=== PATIENT | male | born 1990 | race Caucasian/White ===

== ENCOUNTER 2022-10-29 03:40 | Emergency (ER) | payer OTHER ==
[~2022-10-29] VITALS: Ht 182.9 cm; Wt 70.0 kg
[2022-10-29] MEDS ORDERED: NICOTINE 21MG/24HR 1 EA TRANSDERMAL TD ONE (04:20)
[2022-10-29 04:24] LABS: HEMATOCRIT 39.8 % (42.0-52.0); MEAN CORPUSCULAR HEMOGLOBIN 33.4 pg (27.0-33.0); MEAN CORPUSCULAR HGB CONC 35.2 g/dl (32.0-36.5); PLATELET COUNT, AUTOMATED 179 10^3/uL (150-450); RED BLOOD COUNT 4.19 10^6/uL (4.30-6.10)
[2022-10-29] MEDS ORDERED: LORazepam 2 MG TAB PO PRN (04:35)
[2022-10-29 04:42] LABS: AMPHETAMINES LEVEL URINE NEGATIVE (NEGATIVE); BARBITURATES URINE NEGATIVE (NEGATIVE); BENZODIAZEPINES URINE NEGATIVE (NEGATIVE); CANNABINOIDS URINE NEGATIVE (NEGATIVE); COCAINE METABOLITE URINE NEGATIVE (NEGATIVE); METHADONE URINE NEGATIVE (NEGATIVE); OPIATES URINE NEGATIVE (NEGATIVE); PHENCYCLIDINE URINE NEGATIVE (NEGATIVE)
[2022-10-29 04:57] LABS: ETHYL ALCOHOL (ETHANOL) 0.224 % (0.000-0.010)
[2022-10-29 04:58] LABS: ACETAMINOPHEN LEVEL < 2.0 UG/ML (10.0-20.0)
[2022-10-29 04:59] LABS: ALBUMIN 4.5 G/DL (3.2-5.2); ALKALINE PHOSPHATASE 71 U/L (46-116); ALT/SGPT 111 U/L (7.0-40); AST/SGOT 100 U/L (<34); BILIRUBIN,DIRECT 0.1 MG/DL (<0.4); BILIRUBIN,TOTAL 0.3 MG/DL (0.3-1.2); BLOOD UREA NITROGEN 9 MG/DL (9-23); CALCIUM LEVEL 8.7 MG/DL (8.5-10.1); CARBON DIOXIDE LEVEL 23 MMOL/L (20-31); CHLORIDE LEVEL 104 MMOL/L (98-107); CREATININE FOR GFR 0.63 MG/DL (0.70-1.30); GLOMERULAR FILTRATION RATE > 60.0 (>60); GLUCOSE, FASTING 112 MG/DL (60-100); POTASSIUM SERUM 3.7 MMOL/L (3.5-5.1); SALICYLATE LEVEL < 3.0 MG/DL (<30); SODIUM LEVEL 137 MMOL/L (136-145); TOTAL PROTEIN 7.5 G/DL (5.7-8.2)
[2022-10-29] MEDS ORDERED: THIAMINE 100 MG TAB PO SCH (05:00)
[2022-10-29 05:01] LABS: THYROID STIMULATING HORMONE 2.229 uIU/ML (0.55-4.78)
[2022-10-29] MEDS ORDERED: FOLIC ACID 1MG TAB PO SCH (09:00)
[2022-10-29] MEDS ORDERED: MULTIVITAMINS/MINERALS THERAP 1 TAB PO SCH (09:00)
[2022-10-29] MEDS ORDERED: MED REC IN PROGRESS XX SCH (09:20)
[2022-10-29] MEDS ORDERED: HOME MED LIST COMPLETE! XX SCH (09:35)
[2022-10-29 14:23] VITALS: BP 135/75; TEMP 97; O2SAT 97
== END 2022-10-29 15:13 | disposition home or self-care (01) ==
LOC: M ED 03:40
DX: F43.0 Acute stress reaction (principal); F10.129 Alcohol abuse with intoxication, unspecified